=== PATIENT | male | born 1960 | race Caucasian/White ===

== ENCOUNTER 2021-02-11 20:23 | Emergency (ER) | payer MEDICARE, SELFPAY ==
[2021-02-11 20:25] VITALS: BP 137/76; PULSE 86; RESP 15; TEMP 36.2; O2SAT 97; BMI 31.4
[2021-02-11 21:17] VITALS: O2SAT 97
--- NOTE | 2021-02-11 22:23 | EDS_ITS ---
HPI History of Present Illness Chief Complaint: Cold Sx Informant: patient Onset/Context/Timing Onset: Days (5) Context: Gradual Onset Timing: Continuous Quality: White sputum Location: Chest Worsened by: Nothing Relieved by: Nothing Narrative Narrative: Patient admits to a cough that has been getting worse over the past 5 days. Patient admits to occasional white sputum production. Patient denies any fevers or chills. Patient admits to some rhinorrhea and sore throat. Patient states nothing makes his symptoms better nothing makes it worse. Patient has not tried any [id number] medications. Patient admits to some mild pain in his chest with coughing. Patient states he has had some nausea and vomiting. Patient also admits to some mild neck pain and a headache. [facility] Medical History Atrial fibrillation Diabetes Hyperlipidemia Migraines Smoker Stroke/cerebrovascular accident TIA (transient ischemic attack) Home Medications NK 02/11/21 [History Last Taken Unknown] Allergy/AdvReac Type Severity Reaction Status Date / Time Penicillins [PCN] Allergy Swelling Verified 02/11/21 20:24 Surgical History History of left hip replacement History of left knee replacement Social History Smoking Status: Current every day smoker tobacco type: cigarettes ROS ROS ED Constitutional Constitutional ED: Denies chills or fever(s) Eyes Eyes: Denies blurry vision or change in vision ENT ENT ED: Denies rhinorrhea or sore throat Cardiovascular Cardiovascular: Reports chest pain; Denies palpitations Respiratory/Chest Respiratory/Chest: Reports cough; Denies dyspnea Gastrointestinal Gastrointestinal: Reports nausea and vomiting Genitourinary Genitourinary ED: Denies dysuria or hematuria Musculoskeletal Musculoskeletal: Reports neck pain; Denies back pain Integumentary Denies abscess or rash Neurologic Neurologic: Reports headache(s); Denies weakness Allergic/Immunologic Allergic/Immunologic ED: Denies mouth swelling or urticaria EXAM Physical Exam Const Vital Signs: 02/11/21 20:25 02/11/21 21:17 Temperature 97.2 F L Temperature Source Temporal Pulse Rate 86 Respiratory Rate 15 Respiratory Effort Normal Respiratory Depth Normal Respiratory Pattern Normal Blood Pressure 137/76 H Blood Pressure Mean 96 Pulse Ox 97 Oxygen Delivery Method Room Air Room Air Positive well nourished and well developed General Appearance ED: well developed HEENT Reports TM's clear, moist mucous membranes and other Oropharynx is mildly erythematous. There are no exudates noted. Tympanic Membrane ED: Yes TM's clear Eyes PERRL and EOMs intact bilaterally Neck supple and no JVD Resp normal respiratory effort and clear to auscultation bilaterally Cardio regular rate, regular rhythm and no murmurs GI normal to inspection, nondistended, normoactive bowel sounds and non-tender Palpation: soft Extremity normal to inspection General Extremety ED: Negative for edema or tenderness General Extremity: Negative for edema Neuro oriented x3, CN's II-XII intact bilaterally and no sensory deficits noted Sensorium / Orientation: alert Motor Exam: strength 5/5 throughout Psych mental status grossly normal Skin no rashes or lesions noted MDM MDM MDM Narrative Medical decision making narrative: Portable 1 view chest x-ray was obtained. On my interpretation, lung [place] show bibasilar atelectasis versus edema. There is normal cardiac silhouette. Bony thorax is normal. There is no acute process noted. Radiologist also interpreted the x-ray and agrees. COVID-19 rapid antigen was obtained and was negative. Rapid strep was obtained and was negative. Influenza swab was obtained and was negative. Patient is resting comfortably on reevaluation. Patient was advised of his findings. Patient was instructed to follow-up with his primary care physician in 5 to 7 days. Patient understood and was agreeable with the plan. All questions were answered. Lab Data Attestation: I reviewed the patient's lab results. Radiography Chest X-Ray - ED: 1 View, Read by ED Physician, Read by Radiologist and No Acute Disease Diagnostic Testing: Radiology Impression Chest X-Ray 02/11/21 22:34 IMPRESSION: Increased interstitial markings, mostly in the lung bases could represent edema and/or infection. Electronically Signed: Jalil Purcell MD at 22:56 EDT Tel , Service support , Discharge Plan Triage Chief Complaint: Cold Sx ED Provider: Efrain Caceres Dx/Rx/DC Orders Clinical Impression: Viral upper respiratory tract infection Instructions: ED URI, Viral, No Abx (Adult) Prescriptions: No Action NK RF: 0 Primary Care Provider: Sherri Herrera NP Referrals: Sherri Herrera NP, [facility] [Primary Care Provider] - 3-5 Days Disposition Disposition: Home, Self Care
--- NOTE | 2021-02-11 22:34 | RAD_ITS ---
INDICATION: Cough EXAMINATION/TECHNIQUE: X-RAY - XR Chest 1 View COMPARISON: None. FINDINGS: Increased interstitial markings, mostly in the lung bases. The cardiomediastinal silhouette is unremarkable. No pleural effusion or pneumothorax. No acute osseous abnormalities. RAD/Chest 1 View (Portable) IMPRESSION: Increased interstitial markings, mostly in the lung bases could represent edema and/or infection. Electronically Signed: Jalil Purcell MD at 22:56 EDT Tel , Service support ,
[2021-02-12 00:49] VITALS: BP 116/62; PULSE 66; RESP 16; O2SAT 96
== END 2021-02-12 00:50 | disposition home or self-care (01) ==
PROVIDERS: Emergency Provider Emergency Medicine; PCP Nurse Practitioner Family
DX: J06.9 Acute upper respiratory infection, unspecified (principal); F17.210 Nicotine dependence, cigarettes, uncomplicated
CPT/HCPCS: 71045; 87426; 87804; 87880; 99282